=== PATIENT | male | born 1950 | race Caucasian/White ===

== ENCOUNTER 2025-05-11 09:00 | Outpatient (RCR) | payer MEDICARE, OTHER, SELFPAY | END 2025-08-10 08:31 | disposition home or self-care (01) | PROVIDERS: PCP Family Medicine; Visit Provider Student in an Organized Health Care Education/Training Program | DX: N39.46 Mixed incontinence (principal); M79.651 Pain in right thigh; Z51.89 Encounter for other specified aftercare | CPT/HCPCS: 97110; 97112; 97162; 97535 ==

== ENCOUNTER 2025-05-13 06:11 | Emergency (ER) | payer MEDICARE, OTHER, SELFPAY ==
[2025-05-13] VITALS (14 sets, daily range): BP systolic 128–160; BP diastolic 77–88; PULSE 67–83; RESP 14–24; TEMP 36.7; O2SAT 93–98; BMI 25.1
--- OUTSIDE RECORDS SUMMARY | 2025-05-13 06:13 | XMS_ITS | Clinical Summary ---
Author Organization [facility] Address [address] [place] [address] Care Team Providers Care Fellmongery Worker Name Role Phone Olamide Modi MD Primary Care Prov ider Allergies Active Allergy Reactions Criticality Noted Date Comments Vardenafil Headache 09/06/2011 Lisinopril Cough 02/03/2008 Simvastatin Other - Describe In Comment Field 11/30/2009 Ineffective and patient doesn't recall reaction Medications aspirin (ECOTRIN) 81 mg enteric coated tabletIndications: Controlled type 2 diabetes mellitus with stage 1 chronic kidney disease, without long-term current use of insulin (HC) Take 1 Tablet (81 mg) by mouth once daily with a meal. 0 05/14/20 22 Active blood sugar diagnostic (Blood Glucose Test) stripIndications:C ontrolled type 2 diabetes mellitus with stage 1 chronic kidney disease, without long-term current use of insulin (HC) Test 1 times per day. 100 Each 12 11/22/19 24 Active atenoloL (TENORMIN) 50 mg tabletIndications: HTN (hypertension) Take 1 Tablet (50 mg) by mouth once daily. 90 Tablet 3 07/15/20 24 Active atorvastatin (LIPITOR) 10 mg tabletIndications: Mixed hyperlipidemia Take 1 Tablet (10 mg) by mouth at bedtime. 90 Tablet 3 07/15/20 24 Active codeine-guaiFENesi n 10-100 mg/5 mL liquidIndications: Bronchitis with bronchospasm Take 5 mL by mouth at bedtime if needed for Cough. Max dose 60 mL per 24 hrs. 118 mL 09/30/20 24 Active metFORMIN (GLUCOPHAGE XR) 500 mg Extended-Release tabletIndications: Controlled type 2 diabetes mellitus with stage 1 chronic kidney disease, without long-term current use of insulin (HC) Take 4 Tablets (2,000 mg) by mouth once daily with evening meal. 360 Tablet 3 12/31/19 25 Active semaglutide (Ozempic) 2 mg/3 mL subcutaneous penIndications:Con trolled type 2 diabetes mellitus with stage 1 chronic kidney disease, without long-term current use of insulin (HC) Inject 0.25 mg subcutaneous once weekly. 6 mL 3 04/14/20 25 Active glimepiride 1 mg tabletIndications: Controlled type 2 diabetes mellitus with stage 1 chronic kidney disease, without long-term current use of insulin (HC) Take 1 Tablet (1 mg) by mouth once daily with a meal. 90 Tablet 3 04/14/20 25 Active semaglutide (Ozempic) 2 mg/3 mL subcutaneous penIndications:Con trolled type 2 diabetes mellitus with stage 1 chronic kidney disease, without long-term current use of insulin (HC) Inject 0.25 mg subcutaneous once weekly. 6 mL 3 07/15/20 24 025 Discontin ued(Reord er (E-cancel not sent)) glimepiride (AMARYL) 1 mg tabletIndications: Controlled type 2 diabetes mellitus with stage 1 chronic kidney disease, without long-term current use of insulin (HC) Take 1 Tablet (1 mg) by mouth once daily with a meal. 90 Tablet 3 07/15/20 24 025 Discontin ued(Reord er (E-cancel not sent)) Active Problems Problem Noted Date Diagnosed Date Mixed stress and urge urinary incontinence 03/02 Actinic keratosis of right cheek 07/15/2024 Pulmonary nodule 05/20/2024 Overview (05/20/2024): A 4 mm nodule is present in the left lung base. Additional faint nodule measuring 3 mm right upper lung. Repeat in 1 year (04/2025) due to pipe exposure and history of prostate cancer. If stable, likely will not need further screening. Cerebral artery disease 12/21/2022 History of colon polyps 04/07/2019 Overview (08/06/2024): Colonoscopy 03/2019 normal, repeat in 5 years, PEG 8L Colonoscopy 07/2024 2-TA, repeat in 5 years, PEG 8L Controlled type 2 diabetes m mila with stage 1 chronic kidney disease, without long-term current use of insulin 04/12/2017 HTN (hypertension) 02/22/2016 Prostate cancer 02/05/2014 Overview (02/05/2014): Robotic assisted prostatectomy in 07/2010; lymph nodes were negative. He is now to obtain every 6 month PSA testing until 2014. Skin cancer 10/19/2008 Overview (10/19/2008): BCC Forehead 2006 Mixed hyperlipidemia 08/26/2007 Resolved Problems Problem Noted Date Diagnosed Date Resolved Date Impotence of organic origin 12/07/2010 06/02/2013 Encounters Date Type Department Care Team Description 04/14/2025 3:30 PM CDT Office Visit [facility] [address] [place] [address] Olamide Modi MD Diabetes; Immunization/Injecti on 04/14/2025 Travel 04/09/2025 Travel 03/30/2025 Telephone [facility] [address] [place] [address] Olamide Modi MD Referral 03/02/2025 9:00 AM CDT Office Visit [facility] [address] [place] [address] Olamide Modi MD Jaw Pain (pain for about 1 month. no known injury/Upper right jaw ); Medication Management (Ozempic at a lower dose ) 03/01/2025 Travel from Last 3 Months Immunizations Immunization Administration Dates Next Due COVID-19 VACCINE SPIKEVAX (M ODERNA 50MCG/0.5ML) 12YO+ PFS 04/14/2025 COVID-19 vaccine (Moderna 100mcg/0.5mL) PFMDV 09/18/2021,01/20/2021,12/23/2020 COVID-19 vaccine (Moderna Lawrence chino 50mcg/0.25mL) PF, MDV 02/15/2022 Influenza A (H1N1), Inactivated 10/14/2009 Influenza A (H1N1), Inactiva nikos (Age >=3 Years) 10/11/2009 Influenza, High-dose Quadriv alent Inactivated 08/22/2021 Influenza, IIV3 (Age 6-35 mos) 10/31/2012,2009 Influenza, IIV3 (Age >=3 years) 11/18/19 14,10/31/2012,11/30/2009,10/19,10/13/2007,10/07/2006,09/14/2003 Influenza, IIV4 08/22/2021,,11/22/2017,10/08,10/31/2012 Influenza, Inactivated AIIV4 (Age 65+ Years) Preserv Free 09/03/2023,08/28/2022,08/22/2021 Influenza, Inactivated IIV3 (Age 65+ Years) Preserv Free 09/29/2019 Pneumococcal Poly,23-Valent (Pneumovax) 04/20/2019 Pneumococcal conj 13-Valent (Prevnar 13) 04/12/2017 RSV, Bivalent Vaccine Recons tituted (Abrysvo 120MCG/0.5mL) 11/11/2023 Td (Age >=7 Years) 05/14/2022,08/24/2003 Tdap 12/24/2011 Zoster (Shingrix-RZV, recombinant) 08/07/2018, Family History Medical History Relation Name Comments Other Father Augie Parkinson's d at 89 Heart Disease Mother Teresa rheumatic feve r - at 52 valvular heart disease ALS Sister 1 Patti Garland at 73 Anesthesia Problem No Family History Blood Disease No Family History Relation Name Status Comments Brother Ramin Alive Father Augie (Age 89) Mother Teresa (Age 54) Sister 1 Patti Garland (Age 73) ALS Sister 2 Yanira Alive Social History Tobacco Use Types Packs/Day Years Used Date Smoking Tobacco: Never Smokeless Tobacco: Never Tobacco Cessation:Counseling Given: Yes Alcohol Use Standard Drinks/Week Comments Not Currently 0 (1 standard drink = 0.6 oz pur e alcohol) minimal PHQ-2 Answer Date Recorded PHQ-2 TOTAL SCORE 0 07/15/2024 Social Connections Answer Date Recorded Do you often feel lonely or isolated from those around you? 0 03/02/2025 Financial Resource Strain Answer Date R ecorded Difficulty of Paying Living Expenses 3 03/02/2025 Difficulty of Paying Living Expenses Not on file 03/02/2025 Food Insecurity Answer Date Recorded Do you worry your food will run out before you are able to buy more? 1 03/02/2025 Transportation Needs Answer Date Record ed Does lack of transportation keep you from medica l appointments? 1 03/02/2025 Does lack of transportation keep you from work, meetings or getting things that you need? 1 03/02/2025 Housing Stability Answer Date Recorded What is your housing situation today? 1 03/02/2025 Utilities Answer Date Recorded Do you have trouble paying f or utilities (for example, heat, electricity, water, phone)? 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[employer] Not on file Not on file Not on file Not on file Not on file Not on file Not on file Obstetrics History Last Filed Vital Signs Vital Sign Reading Time Taken Comments Blood Pressure 121/76 04/14/2025 3:41 PM CDT Pulse 88 04/14/2025 3:41 PM CDT Temperature 36.5 C (97.7 F) 09/30/2024 1:17 PM WARP DYEING TENDER Respiratory Rate 18 02/14/2024 7:33 PM CDT Oxygen Saturation 96% 04/14/2025 3:41 PM CDT Inhaled Oxygen Concentration - - Weight 84.2 kg (185 lb 11.2 oz) 12/30/2024 3:36 PM WARP DYEING TENDER Height 176 cm (5' 9.29) 07/15/2024 8:48 AM CDT Body Mass Index 27.19 07/15/2024 8:48 AM CDT Plan of Treatment Health Maintenance Due Date Last Done Comments COVID-19 vaccine series () 06/09/2025 04/14/2025, 08/11/2024, 07/31/2023, Additional history exists Influenza Vaccine (#1) 2025 , 08/28/2022, 08/22/2021, Additional history exists BMI (ht and wt on same day) for age 18+ 07/15/2025 07/15/2024, 05/27/2023, 05/14/2022, Additional history exists Depression screening for age 12+ 07/15/2025 07/15/2024, 05/27/2023, 01/10/2022, Additional history exists Medicare Wellness for age 65+ 07/16/2025 07/15/2024 Lipids for age 45-75 05/27/2028 05/27/2023, 01/10/2022, 05/05/2021, Additional history exists Colonoscopy through age 75 08/06/202908/06, 08/04/2024, 04/07/2019, Additional history exists Tetanus booster 05/14/2032 05/14/2022, 11/29, 08/24/2003 Hepatitis C screening for age 18-79 Completed 02/05/2014 Zoster (shingles) series for age 50+ Completed 08/07/2018, 04/16/2018 Pneumococcal series for age 50+ Completed 04/20/2019, 04/12/2017 RSV vaccine for adults or Completed 11/11/2023 Hepatitis B series for 19+ Aged Out N o longer eligible based on patient's age to complete this topic Procedures Procedure Name Priority Date/Time Associated Diagnosis Comments HEMOGLOBIN A1C MONITORING (POCT) Routine 04/14/2025 3:28 PM CDT Controlled type 2 diabetes mellitus with stage 1 chronic kidney disease, without long-term current use of insulin (HC) COLONOSCOPY SCREENING Routine 08/04/2024 12:00 AM CDT Colon cancer screening LIPID PANEL Routine 05/27/2023 11:07 AM CDT Controlled type 2 diabetes mellitus with stage 1 chronic kidney disease, without long-term current use of insulin (HC) ANTI HCV Routine 02/05/2014 11:14 AM CDT Need for hepatitis C screening test from Last 3 Months or Most Recently Relevant to Health Maintenance Results * (ABNORMAL) POCT Hemoglobin A1C Monitoring (04/14/2025 3:28 PM CDT) Pathologist [facility] POC HEMOGLOBIN A1C 7.9(H) <6.0 % OF TOTAL HGB [facility] Comment: Any point of care results exhibiting inconsistency with the patient's clinical status should be repeated using a different testing method. Blood BLOOD SPECIMEN / Unknown 04/14/2025 3:28 PM CDT 04/14/2025 3:29 PM CDT Olamide Modi MD CHEMISTRY Fi nal Result [facility] [address] [place] [address], [facility] [address] [place] [address] * COLONOSCOPY SCREENING (08/04/2024 12:00 AM CDT) Olamide Modi MD GI PROCEDURE ORD F inal Result * (ABNORMAL) LIPID PANEL (05/27/2023 11:07 AM CDT) [facility] CHOLESTEROL,TOTAL 154 100 - 199 mg/dL 05/27/2023 8:41 PM CDT [facility] Comment: Cholesterol, Total Reference Ranges Desirable <200 mg/dL Borderline 200-239 mg/dL High >=240 mg/dL TRIGLYCERIDES 220(H) <150 mg/dL 05/27/2023 8:41 PM CDT [facility] HDL CHOLESTEROL 40(L) >40 mg/dL 8:41 PM CDT [facility] NON-HDL CHOLESTEROL 114 <145 mg/dl 05/27/2023 8:41 PM CDT [facility] CHOL/HDL RATIO 3.85 <4.50 05/27/2023 8:41 PM CDT [facility] LDL CHOLESTEROL 70 <=130 mg/dL 05/27/2023 8:41 PM CDT [facility] VLDL CHOLESTEROL 44(H) <=30 mg/dL 05/27/2023 8:41 PM CDT [facility] PROVIDER ORDERED STATUS RANDOM 05/27/2023 8:41 PM CDT [facility] Blood BLOOD SPECIMEN / Unknown Venipuncture / Unknown 05/27/2023 11:07 AM CDT 05/27/2023 11:09 AM CDT us Iris Singer DO CHEMISTRY Final Result [facility] [address] [place] [address], [place] * ANTI HCV [[id number]] (02/05/2014 11:14 AM CDT) ANTI HCV Non-reacti ve [facility] Blood specimen (specimen) BLOOD SPECIMEN / Unknown 02/05/2014 11:14 AM CDT 02/05/2014 11:07 AM CDT us Rudy Morrell MD SEND OUTS Final Resu lt [facility] [place]NAL ZIP [id number] [place] [address] from Last 3 Months or Most Recently Relevant to Health Maintenance Insurance Syn[employer] PB ONLY [facility] Advance Directives Documents on File Type Date Recorded Patient Spice Fumigator Expl anation Healthcare Directive 08/10/2010 AUGUST 22, 2005 * Full Code (Latest Code Status on File) Date Activated Date Inactivated Comments 08/10/2010 6:52 PM 08/11/2010 4:47 PM Care Teams Fellmongery Worker Relationship Specialty Start Date End Date Olamide Modi MD [address] [place] [address] PCP - General Family Practice 04/14/24
--- OUTSIDE RECORDS SUMMARY | 2025-05-13 06:13 | XMS_ITS ---
Author Organization [facility]) Address [address] [place] [address] Care Team Providers Care Centrifugal Screen Tender Name Role Phone Unavailable Unavailable Unavailable Allergies, Adverse Reactions, Alerts This patient has no known allergies or adverse reactions. Problems This patient has no known problems.
--- NOTE | 2025-05-13 06:48 | CRLHL7_ITS ---
For Patients: As a result of the Cures Act, medical imaging exams and procedure reports are released immediately into your electronic medical record. You may view this report before your referring provider. If you have questions, please contact your health care provider. INDICATION: Chest pain. TECHNIQUE: Chest 2 views. COMPARISON: Chest radiograph 01/06/2022 FINDINGS: Cardiovascular and mediastinum: Heart size is normal. Unremarkable mediastinum. Lungs and pleural spaces: Lungs are clear. No sign of pleural effusion. No pneumothorax. Bones and soft tissues: No significant findings. IMPRESSION: No acute findings. Dictated by Mee Leon MD @ 05/13/2025 7:15:21 AM (Electronically Signed)
[2025-05-13 07:13] LABS: Hematocrit 40.4 % (37.0-53.0); Hemoglobin* 13.6 gm/dL (13.5-17.5); Immature Granulocytes Abs Auto 0.02 K/uL (0.00-0.30); Immature Granulocytes Pct Auto 0.3 %; Lymphocytes Absolute Auto 2.22 K/uL (0.90-2.90); Mean Corpuscular HGB Conc 34 gm/dL (32-36); Mean Corpuscular Hemoglobin 29 pg (26-34); Mean Corpuscular Volume 85 fL (80-100); RDW Coefficient of Variation % 11.9 % (11.5-15.5); Red Blood Count 4.77 m/uL (4.30-5.90); White Blood Count* 6.37 K/uL (4.50-11.00)
[2025-05-13 07:18] LABS: Slide Review Reflex No
[2025-05-13 07:25] LABS: Chloride* 106 mmol/L (96-114); Potassium* 4.3 mmol/L (3.6-5.1); Sodium* 139 mmol/L (135-149)
[2025-05-13 07:28] LABS: Blood Urea Nitrogen* 19 mg/dL (7-30); Creatinine* 0.8 mg/dL (0.5-1.5); Est. Creatinine Clearance* 67.93; Estimated Glomerular Filt Rate 93 ml/min
[2025-05-13 07:29] LABS: Anion Gap 9 mEq/L (7-15); Calcium* 9.3 mg/dL (8.4-10.6); Carbon Dioxide* 24 mmol/L (20-32); Glucose* 144 mg/dL (60-115)
[2025-05-13 08:08] LABS: TSH With Reflex to FT4* 2.380 uIU/mL (0.270-4.200)
--- NOTE | 2025-05-21 00:53 | ED.CHESTPAIN ---
HPI - Chest Pain General Chief Complaint: Chest Pain Stated Complaint: chest pain- feels like a buzz on chest Time Seen by Provider: 05/13/25 06:24 History of Present Illness HPI narrative: 74-year-old male who comes in with several episodes of fluttering in his chest. He describes this as a vibration that lasts a few seconds. There are no longer episodes. No chest pains or shortness of breath. He has not had this feeling previously. He has not been sick with fevers or chills. Related Data Home Medications ?Medication ?Instructions ?Recorded ?Confirmed aspirin 81 mg tablet,delayed 81 mg PO QDAY 09/25/22 05/13/25 release atenolol 50 mg tablet 50 mg PO QDAY 09/25/22 05/13/25 atorvastatin 10 mg tablet 10 mg PO QDAY 09/25/22 05/13/25 glimepiride 1 mg tablet 1 mg PO QDAY 09/25/22 05/13/25 metformin 500 mg tablet,extended 2,000 mg PO QDAY 09/25/22 05/13/25 release 24 hr Allergies Allergy/AdvReac Type Severity Reaction Status Date / Time lisinopril Allergy Cough Verified 09/25/22 08:13 simvastatin Allergy Verified 09/25/22 08:13 vardenafil (From Levitra) Allergy Headache Verified 09/25/22 08:13 Review of Systems Narrative Review of systems is outlined above otherwise noted to be negative. No exertional chest pains or shortness of breath. [facility] Medical History (Updated 05/28/25 @ 00:00 by Basilio Merino) Cerebral artery disease ?I67.9 - Cerebrovascular disease, unspecified (ICD-10) Pulmonary nodule ?R91.1 - Solitary pulmonary nodule (ICD-10) Mixed stress and urge urinary incontinence ?N39.46 - Mixed incontinence (ICD-10) Prostate cancer ?C61 - Malignant neoplasm of prostate (ICD-10) Diabetes ?E11.9 - Type 2 diabetes mellitus without complications (ICD-10) Hypertension ?I10 - Essential (primary) hypertension (ICD-10) Hyperlipidemia ?E78.5 - Hyperlipidemia, unspecified (ICD-10) Surgical History (Updated 05/13/25 @ 06:31 by Gio Jones RN) Status post surgical removal of malignant neoplasm of skin ?Z98.890 - Other specified postprocedural states (ICD-10) History of colonoscopy ?Z98.890 - Other specified postprocedural states (ICD-10) H/O radical prostatectomy ?Z90.79 - Acquired absence of other genital organ(s) (ICD-10) History of appendectomy ?Z90.49 - Acquired absence of other specified parts of digestive tract (ICD-10) Status post arthroscopy of right shoulder (06/11/13) ?Z98.890 - Other specified postprocedural states (ICD-10) Social History (Updated 09/25/22 @ 08:13 by Georgette Jain ~ [facility], [facility]) Smoking Status: Never smoker Do you use any of these nicotine containing products: None Second hand tobacco smoke exposure: No How often do you have a drink containing alcohol: never AUDIT-C Alcohol total score: 0 Non-prescribed substance use: denies use Exam Narrative Exam Narrative: Vitals noted. HEENT: Conjunctiva clear. Tympanic membranes are pearly white bilaterally. Posterior pharynx is clear without erythema or exudate. Neck is supple without adenopathy, thyromegaly, carotid bruit. Lungs: Clear to auscultation in all [place]. No wheezes, rales, rhonchi. Heart: Regular rate and rhythm without murmur. Abdomen: Soft and nontender. No guarding, rigidity, rebound. Bowel sounds are normal. No palpable masses. Extremities: No cyanosis or edema. Good distal pulses. Skin: No abnormalities noted of the exposed skin. Neurologic: Awake, alert, fully oriented. Neurologic exam is nonfocal. Course Course ED Course: Patient seen and examined. He is put on conveyor monitor with no abnormalities noted. CBC, BMP, TSH, troponin are all normal. Chest x-ray is normal. He is reassured by his normal test results. Vital Signs Vital signs: Initial Vital Signs Temperature 98.1 F 05/13/25 06:22 Temperature Source Temporal Artery Scan 05/13/25 06:22 Pulse Rate 83 05/13/25 06:22 Respiratory Rate 16 05/13/25 06:22 Blood Pressure 160/82 H 05/13/25 06:22 Blood Pressure Mean 108 H 05/13/25 06:22 Blood Pressure Position Sitting 05/13/25 06:22 Pulse Oximetry 98 05/13/25 06:22 Oxygen Delivery Method Room Air 05/13/25 06:22 Vital Signs Temperature 98.1 F 05/13/25 06:22 Pulse Rate 83 05/13/25 06:22 Respiratory Rate 16 05/13/25 06:22 Blood Pressure 160/82 H 05/13/25 06:22 Pulse Oximetry 98 05/13/25 06:22 Oxygen Delivery Method Room Air 05/13/25 06:22 Temperature 98.1 F 05/13/25 06:22 Pulse Rate 77 05/13/25 08:02 Respiratory Rate 17 05/13/25 07:45 Blood Pressure 128/79 05/13/25 08:02 Pulse Oximetry 94 05/13/25 08:02 Oxygen Delivery Method Room Air 05/13/25 06:22 MDM - Chest Pain Lab Data Labs: Lab Results 05/13/25 Range/Units 06:55 WBC 6.37 (4.50-11.00) K/uL RBC 4.77 (4.30-5.90) m/uL Hgb 13.6 (13.5-17.5) gm/dL Hct 40.4 (37.0-53.0) % MCV 85 (80-100) fL MCH 29 (26-34) pg MCHC 34 (32-36) gm/dL RDW Coeff of Lola 11.9 (11.5-15.5) % Plt Count 217 (140-440) K/uL Neut % (Auto) 50.9 (42.0-72.0) % Lymph % (Auto) 34.9 (20-44) % [place] % (Auto) 7.4 (0.0-11.0) % Eos % (Auto) 6.0 (0.0-7.0) % Baso % (Auto) 0.5 (0.0-3.0) % Neut # (Auto) 3.25 (1.7-7.0) K/uL Lymph # (Auto) 2.22 (0.90-2.90) K/uL [place] # (Auto) 0.50 (0.00-0.90) K/UL Eos # (Auto) 0.38 (0.00-0.50) K/uL Baso # (Auto) 0.03 (0.00-0.30) K/uL Abs Immat Gran (auto) 0.02 (0.00-0.30) K/uL Imm/Tot Granulo (auto) 0.3 % Sodium 139 (135-149) mmol/L Potassium 4.3 (3.6-5.1) mmol/L Chloride 106 (96-114) mmol/L Carbon Dioxide 24 (20-32) mmol/L Anion Gap 9 (7-15) mEq/L BUN 19 (7-30) mg/dL Creatinine 0.8 (0.5-1.5) mg/dL Estimated Creat Clear 67.93 Estimated GFR 93 ml/min Glucose 144 H (60-115) mg/dL Calcium 9.3 (8.4-10.6) mg/dL Troponin I < 0.01 (0.01-0.04) ng/mL TSH 2.380 (0.270-4.200) uIU/mL Discharge Plan Discharge Clinical Impression: Fluttering heart Patient Disposition: Home, Self-Care Condition: Stable Additional Instructions: Follow up with your PCP in 1-2 weeks. Return to the ED for chest pain or shortness of breath. Prescriptions: No Action metformin 500 mg tablet extended release 24 hr 2,000 mg PO QDAY atenolol 50 mg tablet 50 mg PO QDAY atorvastatin 10 mg tablet 10 mg PO QDAY glimepiride 1 mg tablet 1 mg PO QDAY aspirin 81 mg tablet,delayed release (DR/EC) 81 mg PO QDAY Follow Up/Referrals: Olamide Modi MD [Primary Care Provider, Family Practice] Stand Alone Forms: MyHealth Info Instructions
== END 2025-05-13 08:09 | disposition home or self-care (01) ==
PROVIDERS: Emergency Provider Family Medicine; PCP Student in an Organized Health Care Education/Training Program
DX: I49.8 Other specified cardiac arrhythmias (principal)
CPT/HCPCS: 36415; 71046; 80048; 84443; 84484; 85025; 93005; 94761; 99284